=== PATIENT | female | born 1945 | race Caucasian/White ===

== ENCOUNTER 2017-06-29 12:58 | Inpatient (IN) | payer OTHER, MEDICARE ==
[~2017-06-29] VITALS: Ht 160 cm; Wt 57.6 kg
[~2017-06-29 12:58] MED LIST: ASPI81TA82 PO; EXCETAB2 PO; HYDR12.56 PO; POTA595T5 PO; PRAV40 PO
[2017-06-29 13:31] VITALS: BP 164/68; PULSE 85; RESP 16; TEMP 98.3; O2SAT 96
[2017-06-29] MEDS ORDERED: SODIUM CHLORIDE 0.9% FLUSH 10 ML FLUSH IV FLUSH PRN ×2 (13:45→19:30)
[2017-06-29] MEDS ORDERED: ONDANSETRON HCL 4 MG/2 ML VIAL IV PUSH ONE (13:45)
[2017-06-29] MEDS ORDERED: MORPHINE SULFATE 4 MG/ML INJ IV PUSH ONE (13:45)
[2017-06-29 13:49] VITALS: BP 163/66; PULSE 85; RESP 16; O2SAT 100
--- NOTE | 2017-06-29 13:51 | PD ---
HPI Chief Complaint: Pain: Acute or Chronic Time Seen by Provider: 13:45 Travel History International Travel<30 days: No Contact w/Intl Traveler<30days: No Traveled to known affect area: No History of Present Illness HPI Patient comes in complaining of right knee pain describes as throbbing burning sensation throughout her right knee. Patient states she awoke with this yesterday. Patient denies doing anything for it. Denies anything making it better. Pain is worse with movement. Patient states she is unable to ambulate secondary to the pain. Denies any radiation of pain, fevers, chest pain, shortness of breath, numbness or tingling anywhere, trauma, or IV drug use history. PFSH Past Medical History Arthritis: Yes Asthma: No Autoimmune Disease: No Blood Disorders: No Anxiety: No Depression: No Heart Rhythm Problems: No Cancer: Yes Cardiovascular Problems: No High Cholesterol: No Chemotherapy: No Chest Pain: No Congestive Heart Failure: No COPD: Yes Cerebrovascular Accident: Yes Diabetes: No Diminished Hearing: No Endocrine: No Gastrointestinal Disorders: Yes GERD: No Genitourinary: No Headaches: Yes Hiatal Hernia: No Hypertension: Yes Immune Disorder: No Implanted Vascular Access Dvce: Yes Kidney Stones: No Musculoskeletal: Yes ( OSTEOMYLITIS AGE 11, ARTHRITIS,NECK AND BACK) Neurologic: Yes (STROKE, NECK, BACK) Psychiatric: Yes (CLAUSTRAPHOBIA) Reproductive: Yes Respiratory: Yes (COPD) Migraines: No Radiation Therapy: No Renal Failure: No Seizures: No Sickle Cell Disease: No Sleep Apnea: No Thyroid Disease: No Ulcer: No ?: Not : 3 Para: 3 Past Surgical History Abdominal Surgery: Yes AICD: No Appendectomy: Yes Arteriovenous Shunt: No Body Medical Devices: STENTS LEGS, CERVICAL HARDWARE Cardiac Surgery: No Ear Surgery: No Endocrine Surgery: No Eye Surgery: No Genitourinary Surgery: No Gynecologic Surgery: Yes (HYSTERECTOMY) Hysterectomy: Yes Insulin Pump: No Joint Replacement: Yes (BILAT HIP) Neurologic Surgery: Yes (CERVICAL FUSION, LUMBAR DISCECTOMY) Oral Surgery: Yes (TEETH EXTRACTED) Pacemaker: No Thoracic Surgery: No Tonsillectomy: Yes Other Surgery: Yes (LT FEM BIPASS GRAFT-2009 RT ARTHRECTOMY) Social History Alcohol Use: No Tobacco Use: Yes Substance Use: No Allergies-Medications (Allergen,Severity, Reaction): Coded Allergies: Sulfa (Sulfonamide Antibiotics) (Unverified Allergy, Severe, Rash, 05/15/17 ) Reported Meds & Prescriptions Reported Meds & Active Scripts Active Keflex (Cephalexin) 500 Mg Cap 500 Mg PO Q12H 10 Days Mobic (Meloxicam) 7.5 Mg Tab 7.5 Mg PO DAILY 7 Days Review of Systems Except as stated in HPI: all other systems reviewed are Neg Physical Exam Narrative GENERAL: Well-developed, well nourished, in no acute distress, and non-ill appearing. SKIN: Focused skin assessment warm and dry. HEAD: Atraumatic. Normocephalic. EYES: Pupils equal and round. EOMI. No scleral icterus. No injection or drainage. ENT: No nasal bleeding or discharge. Mucous membranes pink and moist. NECK: Trachea midline. Supple. No nuclear rigidity. CARDIOVASCULAR: Dorsal pulses 2+ contact, equal bilaterally. Capillary refill less than 2 seconds. RESPIRATORY: No accessory muscle use. No respiratory distress. MUSCULOSKELETAL: No obvious deformities. No clubbing. No cyanosis. No edema. Decreased range of motion right knee secondary to pain. There is no crepitus, erythematous, or wound noted. Knee is afebrile. There is fluid collection noted. NEUROLOGICAL: Awake and alert. No obvious cranial nerve deficits. Motor grossly within normal limits. Normal speech. PSYCHIATRIC: Appropriate mood and affect; insight and judgment normal. Data Data Last Documented VS Vital Signs Date Time Temp Pulse Resp B/P (MAP) Pulse Ox O2 Delivery O2 Flow Rate FiO2 06/29/17 17:27 77 16 132/56 (81) 96 Room Air 06/29/17 13:31 98.3 Orders Orders Basic Metabolic Panel (Bmp) (06/29/17 13:45) Complete Blood Count With Diff (06/29/17 13:45) Prothrombin Time / Inr (Pt) (06/29/17 13:45) Act Partial Throm Time (Ptt) (06/29/17 13:45) Urinalysis - C+S If Indicated (06/29/17 13:45) Iv Access Insert/Monitor (06/29/17 13:45) Ecg Monitoring (06/29/17 13:45) Oximetry (06/29/17 13:45) Sodium Chloride 0.9% Flush (Ns Flush) (06/29/17 13:45) Knee, Complete (4vws) (06/29/17 ) Morphine Inj (Morphine Inj) (06/29/17 13:45) Ondansetron Inj (Zofran Inj) (06/29/17 13:45) Urine Culture (06/29/17 14:30) Ketorolac Inj (Toradol Inj) (06/29/17 16:00) Splint Or Brace Apply/Monitor (06/29/17 15:57) Ceftriaxone Inj (Rocephin Inj) (06/29/17 16:00) Admit Order (Ed Use Only) (06/29/17 19:04) Labs Laboratory Tests Test 06/29/17 14:00 06/29/17 14:30 White Blood Count 8.6 TH/MM3 Red Blood Count 4.28 MIL/MM3 Hemoglobin 12.6 GM/DL Hematocrit 37.5 % Mean Corpuscular Volume 87.7 FL Mean Corpuscular Hemoglobin 29.5 PG Mean Corpuscular Hemoglobin Concent 33.7 % Red Cell Distribution Width 15.0 % Platelet Count 167 TH/MM3 Mean Platelet Volume 10.3 FL Neutrophils (%) (Auto) 85.8 % Lymphocytes (%) (Auto) 6.9 % Monocytes (%) (Auto) 7.2 % Eosinophils (%) (Auto) 0.0 % Basophils (%) (Auto) 0.1 % Neutrophils # (Auto) 7.4 TH/MM3 Lymphocytes # (Auto) 0.6 TH/MM3 Monocytes # (Auto) 0.6 TH/MM3 Eosinophils # (Auto) 0.0 TH/MM3 Basophils # (Auto) 0.0 TH/MM3 CBC Comment DIFF FINAL Differential Comment Prothrombin Time 11.7 SEC Prothromb Time International Ratio 1.1 RATIO Activated Partial Thromboplast Time 33.7 SEC Blood Urea Nitrogen 12 MG/DL Creatinine 1.05 MG/DL Random Glucose 127 MG/DL Calcium Level 9.0 MG/DL Sodium Level 138 MEQ/L Potassium Level 3.6 MEQ/L Chloride Level 105 MEQ/L Carbon Dioxide Level 24.5 MEQ/L Anion Gap 9 MEQ/L Estimat Glomerular Filtration Rate 52 ML/MIN Urine Color YELLOW Urine Turbidity HAZY Urine pH 5.5 Urine Specific [place] 1.013 Urine Protein TRACE mg/dL Urine Glucose (UA) NEG mg/dL Urine Ketones NEG mg/dL Urine Occult Blood SMALL Urine Nitrite POS Urine Bilirubin NEG Urine Urobilinogen LESS THAN 2.0 MG/DL Urine Leukocyte Esterase MOD Urine RBC 1 /hpf Urine WBC 9 /hpf Urine Bacteria MANY /hpf Microscopic Urinalysis Comment CULTURE INDICATED MDM Medical Decision Making Medical Screen Exam Complete: Yes Emergency Medical Condition: Yes Differential Diagnosis Fracture, effusion, bursitis, septic arthritis, UTI, bedbugs, other Narrative Course Patient was seen and examined. IV was established patient was placed on continuous cardiac monitoring. Initial laboratory radiological studies were ordered. Patient was given IV morphine for pain. Patient was cleaned by nursing staff to help clean up the bedbugs. Discussed patient with Dr. Farrar, who saw and evaluated the patient is agreeable with plan of care and disposition. Case management was consulted this patient is assistance with possible placement secondary to her current living conditions. Case management has some placement for however patient was unable to ambulate which were not patient to go to the assisted living facility that they had set up for her. Case management then tried contacting several other facilities without any return calls. Patient will be placed on observation for possible placement tomorrow. Patient is agreeable to this. Patient was given a dose of Rocephin for her UTI. Physician Communication Physician Communication [address] Farr, who is agreeable to admit the patient. Diagnosis Primary Impression: Effusion of right knee joint Additional Impression: UTI (urinary tract infection) Qualified Codes: N39.0 - Urinary tract infection, site not specified Admitting Information Admitting Physician Requests: Observation Referrals: [facility] Patient Instructions: General Instructions, Swollen Knee Joint (ED), Urinary Tract Infection in Women (ED) Med/Other Pt SpecificInfo: Prescription(s) given Scripts Cephalexin (Keflex) 500 Mg Cap 500 MG PO Q12H for Infection for 10 Days, #20 CAP 0 Refills Prov: Pushpa Farrar MD 06/29/17 Meloxicam (Mobic) 7.5 Mg Tab 7.5 MG PO DAILY for Pain for 7 Days, #7 TAB 0 Refills Prov: Pushpa Farrar MD 06/29/17 Condition: Stable Jesus Garcia Jun 29, 2017 13:51
[2017-06-29 14:15] LABS: AUTOMATED NEUTROPHIL # 7.4 TH/MM3 (1.8-7.7); BASOPHIL % 0.1 % (0.0-2.0); HEMATOCRIT 37.5 % (35.0-46.0); HEMO FLAGS DIFF FINAL; LYMPH % 6.9 % (9.0-44.0); LYMPHOCYTE # 0.6 TH/MM3 (1.0-4.8); MEAN CELL VOLUME 87.7 FL (80.0-100.0); MEAN CORPUSCULAR HEMOGLOBIN 29.5 PG (27.0-34.0); MEAN CORPUSCULAR HGB CONC 33.7 % (32.0-36.0); MONO % 7.2 % (0.0-8.0); NEUT % 85.8 % (16.0-70.0); PLATELET COUNT 167 TH/MM3 (150-450); RED BLOOD COUNT 4.28 MIL/MM3 (4.00-5.30); WHITE BLOOD COUNT 8.6 TH/MM3 (4.0-11.0)
[2017-06-29 14:30] LABS: APTT (PATIENT) 33.7 SEC (24.3-30.1); INTERNATIONAL NORMALIZED RATIO 1.1 RATIO; PROTHROMBIN TIME - PATIENT 11.7 SEC (9.8-11.6)
[2017-06-29 14:35] LABS: BICARBONATE 24.5 MEQ/L (21.0-32.0); POTASSIUM 3.6 MEQ/L (3.5-5.1)
--- NOTE | 2017-06-29 15:25 | RADRPT ---
EXAM DATE/TIME: 06/29/2017 15:06 [facility] COMPARISON: CHEST SINGLE AP, February 06, 2015, 19:36. INDICATIONS : Pain in entire knee without fall or trauma. MEDICAL HISTORY : None. SURGICAL HISTORY : None. ENCOUNTER: Initial ACUITY: 2 days PAIN SCORE: 8/10 LOCATION: Right knee FINDINGS: The osseous structures are intact. There is a moderate-sized effusion in the suprapatella bursa. Ther e are atherosclerotic changes seen in the superficial femoral artery. CONCLUSION: 1. Moderate size joint effusion. 2. No acute bony abnormality. Ray Padron MD on June 29, 2017 at 15:23 Board Certified Radiologist. This report was verified electronically.
[2017-06-29 15:34] LABS: BACTERIA, URINE MANY /hpf; BLOOD, URINE SMALL (NEG); COMMENT (UR) CULTURE INDICATED; CULTURE IF INDICATED CULTURE INDICATED; GLUCOSE,URINE NEG (NEG); KETONE, URINE NEG (NEG); NITRITE,URINE POS (NEG); PH, URINE 5.5 (5.0-8.5); URINE COLOR YELLOW (YELLW/STRAW)
[2017-06-29] MEDS ORDERED: cefTRIAXone INJ 1,000 MG in SODIUM CHLORIDE 0.9% INJ 100 ML IV ONE (16:00)
[2017-06-29] MEDS ORDERED: KETOROLAC TROMETHAMINE 30 MG/ML (IVP) VIAL IV PUSH ONE (16:00)
[2017-06-29] MEDS ORDERED: CEPH-460 PO (16:10)
[2017-06-29] MEDS ORDERED: MOBI7.5T PO (16:10)
[2017-06-29 17:27] VITALS: BP 132/56; PULSE 77; RESP 16; O2SAT 96
--- NOTE | 2017-06-29 19:28 | HHI.HP ---
[facility] Cedric Bartlett MD Admission Diagnosis right knee joint effusion, UTI, unable to ambulate. Diagnoses: (1) Gait instability Diagnosis: Principal (2) Knee pain Diagnosis: Principal (3) Renal insufficiency Diagnosis: Principal (4) UTI (urinary tract infection) Diagnosis: Principal (5) HTN (hypertension) Diagnosis: Principal Travel History International Travel<30 Days: No Contact w/Intl Traveler <30 Da: No Traveled to Known Affected Are: No History of Present Illness This is a 71-year-old female with a PMH of HTN, COPD, h/o CVA and Tobacco Abuse who was brought to the ER by EMS secondary to complaints of severe right knee pain. Reports increasing difficulty w/ ambulation due to pain. Denies injury or trauma. Per EMS, pt living in very poor conditions, unkempt. On arrival, BP 164/68, HR 85, O2 sat 96% on RA, Afebrile. CBC unremarkable. Creatinine 1.05, previously 0.63 on 02/07/15. INR 1.1. UA positive for UTI. Knee X-ray with moderate size joint effusion. Patient was to be DC'd to [facility] from ER, however unable to make arrangements for placement at this time, therefore pt to be admitted for gait instability as unsafe discharge home. Review of Systems Except as stated in HPI: all other systems reviewed are Neg ROS: 14 point review of systems otherwise negative. Past Family Social History Past Medical History PMH: HTN, COPD, h/o CVA and Tobacco Abuse Past Surgical History PAST SURGICAL HISTORY: Cervical Hardware, Appendectomy, Hysterectomy, Bilateral Hip Replacement, Lumbar Discectomy, Dental Extraction, Left Femoral Bypass Allergies: Coded Allergies: Sulfa (Sulfonamide Antibiotics) (Unverified Allergy, Severe, Rash, 05/15/17 ) Family History PAST FAMILY HISTORY: Reviewed. No h/o DM or CAD Social History PAST SOCIAL HISTORY: Negative for alcohol or drugs. Positive for tobacco. Physical Exam Vital Signs Vital Signs Date Time Temp Pulse Resp B/P (MAP) Pulse Ox O2 Delivery O2 Flow Rate FiO2 06/29/17 17:27 77 16 132/56 (81) 96 Room Air 06/29/17 13:49 85 16 163/66 (98) 100 Room Air 06/29/17 13:31 98.3 85 16 164/68 (100) 96 Physical Exam PE: GENERAL: Elderly female in no acute distress. HEENT: PERRLA, EOMI. No scleral icterus or conjunctival pallor. No lid lag or facial droop. CARDIOVASCULAR: Regular rate and rhythm. No obvious murmurs to auscultation. No chest tenderness to palpation. RESPIRATORY: No obvious rhonchi or wheezing. Clear to auscultation. Breath sounds equal bilaterally. GASTROINTESTINAL: Abdomen soft, non-tender, nondistended. BS normal. MUSCULOSKELETAL: Extremities without clubbing, cyanosis, or edema. No obvious deformities. Decreased ROM of right knee due to pain, +effusion. Pulses intact. NEUROLOGICAL: Awake, alert and oriented x4. No focal neurologic deficits. Moving both upper and lower extremities spontaneously. Laboratory Laboratory Tests Test 06/29/17 14:00 06/29/17 14:30 White Blood Count 8.6 Red Blood Count 4.28 Hemoglobin 12.6 Hematocrit 37.5 Mean Corpuscular Volume 87.7 Mean Corpuscular Hemoglobin 29.5 Mean Corpuscular Hemoglobin Concent 33.7 Red Cell Distribution Width 15.0 Platelet Count 167 Mean Platelet Volume 10.3 Neutrophils (%) (Auto) 85.8 Lymphocytes (%) (Auto) 6.9 Monocytes (%) (Auto) 7.2 Eosinophils (%) (Auto) 0.0 Basophils (%) (Auto) 0.1 Neutrophils # (Auto) 7.4 Lymphocytes # (Auto) 0.6 Monocytes # (Auto) 0.6 Eosinophils # (Auto) 0.0 Basophils # (Auto) 0.0 CBC Comment DIFF FINAL Differential Comment Prothrombin Time 11.7 Prothromb Time International Ratio 1.1 Activated Partial Thromboplast Time 33.7 Blood Urea Nitrogen 12 Creatinine 1.05 Random Glucose 127 Calcium Level 9.0 Sodium Level 138 Potassium Level 3.6 Chloride Level 105 Carbon Dioxide Level 24.5 Anion Gap 9 Estimat Glomerular Filtration Rate 52 Urine Color YELLOW Urine Turbidity HAZY Urine pH 5.5 Urine Specific [place] 1.013 Urine Protein TRACE Urine Glucose (UA) NEG Urine Ketones NEG Urine Occult Blood SMALL Urine Nitrite POS Urine Bilirubin NEG Urine Urobilinogen LESS THAN 2.0 Urine Leukocyte Esterase MOD Urine RBC 1 Urine WBC 9 Urine Bacteria MANY Microscopic Urinalysis Comment CULTURE INDICATED Date/Time Source Procedure Growth Status 06/29/17 14:30 Urine Clean Catch Urine Culture Pending Received Result Diagram: 06/29/17 1400 06/29/17 1400 Pedro VTE Risk Assessment Caprini VTE Risk Assessment: Mod/High Risk (score >= 2) Caprini Risk Assessment Model Point Value = 1 Point Value = 2 Point Value = 3 Point Value = 5 Age 41-60 Minor surgery BMI > 25 kg/m2 Swollen legs Varicose veins or History of unexplained or recurrent spontaneous Oral contraceptives or hormone replacement Sepsis (< 1 month) Serious lung disease, including pneumonia (< 1 month) Abnormal pulmonary function Acute myocardial infarction Congestive heart failure (< 1 month) History of inflammatory bowel disease Medical patient at bed rest Age 61-74 Arthroscopic surgery Major open surgery (> 45 min) Laparoscopic surgery (> 45 min) Malignancy Confined to bed (> 72 hours) Immobilizing plaster cast Central venous access Age >= 75 History of VTE Family history of VTE Factor V Leiden Prothrombin [id number] Lupus anticoagulant Anticardiolipin antibodies Elevated serum homocysteine Heparin-induced thrombocytopenia Other congenital or acquired thrombophilia Stroke (< 1 month) Elective arthroplasty Hip, pelvis, or leg fracture Acute spinal cord injury (< 1 month) Prophylaxis Regimen Total Risk Factor Score Risk Level Prophylaxis Regimen 0-1 Low Early ambulation 2 Moderate Order ONE of the following: *Sequential Compression Device (SCD) *Heparin 5000 units SQ BID 3-4 Higher Order ONE of the following medications: *Heparin 5000 units SQ TID *Enoxaparin/Lovenox 40 mg SQ daily (WT < 150 kg, CrCl > 30 mL/min) *Enoxaparin/Lovenox 30 mg SQ daily (WT < 150 kg, CrCl > 10-29 mL/min) *Enoxaparin/Lovenox 30 mg SQ BID (WT < 150 kg, CrCl > 30 mL/min) AND/OR *Sequential Compression Device (SCD) 5 or more Highest Order ONE of the following medications: *Heparin 5000 units SQ TID (Preferred with Epidurals) *Enoxaparin/Lovenox 40 mg SQ daily (WT < 150 kg, CrCl > 30 mL/min) *Enoxaparin/Lovenox 30 mg SQ daily (WT < 150 kg, CrCl > 10-29 mL/min) *Enoxaparin/Lovenox 30 mg SQ BID (WT < 150 kg, CrCl > 30 mL/min) AND *Sequential Compression Device (SCD) Assessment and Plan Problem List: (1) Gait instability ICD Code: R26.81 - Unsteadiness on feet (2) Knee pain ICD Code: M25.569 - Pain in unspecified knee (3) Renal insufficiency ICD Code: N28.9 - Disorder of kidney and ureter, unspecified (4) UTI (urinary tract infection) ICD Code: N39.0 - Urinary tract infection, site not specified Status: Acute (5) HTN (hypertension) ICD Code: I10 - Essential (primary) hypertension Assessment and Plan A/P: 1. Gait Instability: c/o progressive gait instability secondary to knee pain, unable to ambulate without assistance. Lives alone. Case Management evaluated pt in ER, plan is for transfer to [facility] however unable to make arrangements at this time. Pt will be admitted for Observation as unsafe discharge home. Case Management consult in place. PT for eval/tx. 2. Knee Pain: Right. Severe. No injury/trauma. Knee X-ray w/ moderate size effusion, images reviewed by me. PT for eval/tx. Analgesics as needed. 3. MIREYA: Acute Renal Insufficiency. Creatinine 1.05, previously 0.63 on . U/a positive for UTI, IVF for hydration, repeat labs in am. 4. UTI: U/a w/ UTI, s/p Rocephin in ER. Continue IV Abx, IVF for hydration as above. 5. HTN: BP 150-160's, likely compounded by pain complaints, optimize pain control. Monitor BP. 6. DVT Prophylaxis: Heparin sq 7. Social work for d/c planning as needed. 8. Case discussed w/ ER physician at length. Problem Qualifiers (1) UTI (urinary tract infection): Qualified Codes: N39.0 - Urinary tract infection, site not specified Alma Farr MD Jun 29, 2017 19:28
[2017-06-29] MEDS ORDERED: SENNOSIDES 8.6 MG TAB PO PRN (19:30)
[2017-06-29] MEDS ORDERED: MAGNESIUM HYDROXIDE SUSP 30 ML CUP PO PRN (19:30)
[2017-06-29] MEDS ORDERED: LACTULOSE SYRUP 20 GM/30 ML CUP PO PRN (19:30)
[2017-06-29] MEDS ORDERED: BISACODYL 10 MG SUPP RECTAL PRN (19:30)
[2017-06-29] MEDS ORDERED: ACETAMINOPHEN/HYDROcodone 325 MG/5 MG TAB PO PRN (19:30)
[2017-06-29] MEDS ORDERED: ACETAMINOPHEN 325 MG TAB PO PRN (19:30)
[2017-06-29] MEDS ORDERED: ONDANSETRON HCL 4 MG/2 ML VIAL IVP PRN (19:30)
[2017-06-29] MEDS: SODIUM CHLORIDE 0.9% FLUSH 10 ML FLUSH IV FLUSH SCH (21:00)
[2017-06-29] MEDS: DOCUSATE SODIUM 50 MG/SENNA 8.6 MG TAB PO SCH (21:00)
[2017-06-29 21:06] VITALS: BP 127/78; PULSE 75; RESP 18; O2SAT 98
[2017-06-29] MEDS: SODIUM CHLOR 0.9% 1000 ML INJ 1,000 ML IV SCH (21:09)
[2017-06-29 22:24] VITALS: BP 160/69; PULSE 69; RESP 17; TEMP 97.9; O2SAT 95
[2017-06-29] MEDS: ACETAMINOPHEN/HYDROcodone 325 MG/10 MG TAB PO PRN (23:53)
[2017-06-30] VITALS (11 sets, daily range): BP systolic 113–150; BP diastolic 51–72; PULSE 54–75; RESP 16–18; TEMP 97.6–98.4; O2SAT 90–96
[2017-06-30] MEDS ORDERED: MORPHINE SULFATE 4 MG/ML INJ IV PUSH ONE (02:15)
--- NOTE | 2017-06-30 04:30 | RADRPT ---
EXAM DATE/TIME: 06/30/2017 04:10 [facility] COMPARISON: CHEST SINGLE AP, February 06, 2015, 19:36. INDICATIONS : Chest pain and difficulty breathing MEDICAL HISTORY : None. SURGICAL HISTORY : None. ENCOUNTER: Initial ACUITY: 1 day PAIN SCORE: 6/10 LOCATION: Bilateral chest FINDINGS: A single view of the chest demonstrates subsegmental atelectasis at the lung bases. No significant ef fusion. No pneumothorax. Heart size upper limits normal. Tortuous aorta. CONCLUSION: 1. Subsegmental atelectasis at the lung bases. Franklin Herrera MD on June 30, 2017 at 4:28 Board Certified Radiologist. This report was verified electronically.
[2017-06-30] MEDS: SODIUM CHLOR 0.9% 1000 ML INJ 1,000 ML IV SCH ×2 (06:33→18:29)
--- NOTE | 2017-06-30 08:24 | EKG ---
Date Performed: 06/30/2017 Time Performed: 02:11:16 PTAGE: 71 years EKG: Sinus rhythm LEFT AXIS DEVIATION MINIMAL VOLTAGE CRITERIA FOR LVH, CONSIDER NORMAL VARIANT NONSPECIFIC ST/T-WAVE ABNORMALITY ABNORMAL ECG PREVIOUS TRACING : 02/06/2015 20.37 No significant change from previous tracing noted. DOCTOR: Rafael Muro Interpretating Date/Time 06/30/2017 08:23:36
[2017-06-30 08:27] LABS: HEMATOCRIT 32.4 % (35.0-46.0); MEAN CELL VOLUME 88.2 FL (80.0-100.0); MEAN CORPUSCULAR HGB CONC 34.1 % (32.0-36.0); PLATELET COUNT 139 TH/MM3 (150-450); RED BLOOD COUNT 3.67 MIL/MM3 (4.00-5.30); RED CELL DISTRIBUTION WIDTH 14.7 % (11.6-17.2); WHITE BLOOD COUNT 5.6 TH/MM3 (4.0-11.0)
[2017-06-30 08:28] LABS: HEMO FLAGS AUTO DIFF
[2017-06-30 08:49] LABS: ALKALINE PHOSPHATASE 72 U/L (45-117); ALT (GPT) 8 U/L (10-53); ANION GAP 8 MEQ/L (5-15); AST (GOT) 11 U/L (15-37); BLOOD UREA NITROGEN 14 MG/DL (7-18); CHLORIDE 109 MEQ/L (98-107); GLOMERULAR FILTRATION RATE 64 ML/MIN (>89); POTASSIUM 3.5 MEQ/L (3.5-5.1); SODIUM (NA) 140 MEQ/L (136-145); TOTAL BILIRUBIN ADULT 0.3 MG/DL (0.2-1.0)
[2017-06-30 09:32] LABS: BANDS 3 % (0-6); NEUTROPHIL # MANUAL DIFF 4.4 TH/MM3 (1.8-7.7); POLYS (SEG NEUTROPHILS) 75 % (16-70); WBC DIFF SAMPLE 100
[2017-06-30 09:33] LABS: OVALOCYTES 1+ (NORMAL); PLATELET ESTIMATE SMEAR LOW (NORMAL); PLATELET MORPHOLOGY NORMAL (NORMAL); SCAN/DIFF FINAL DIFF MANUAL
[2017-06-30] MEDS: DOCUSATE SODIUM 50 MG/SENNA 8.6 MG TAB PO SCH ×2 (10:13→21:22)
[2017-06-30] MEDS: HEPARIN SODIUM - SQ 10,000 UNITS/ML VIAL SQ SCH ×2 (10:14→21:23)
[2017-06-30] MEDS: SODIUM CHLORIDE 0.9% FLUSH 10 ML FLUSH IV FLUSH SCH ×2 (10:14→21:22)
[2017-06-30] MEDS: REMOVE OLD PATCH T-DERMAL SCH (12:45)
--- NOTE | 2017-06-30 12:55 | HHI.PR ---
Subjective Remarks Follow up for right knee pain, inability to ambulate. The patient reports continued right knee pain, minimally improved compared to yesterday. She has limited ROM secondary to the pain. She denies noticing any open wound, drainage , or erythema. Denies any recent fevers/chills. Continues to deny any injury to the knee. She states she lives in an efficiency apartment by herself however because of her knee, she is not able to ambulate to take care of herself. She reports generalized weakness. RN reports the patient's O2 sat dropped to 80s today. The patient has COPD, but does not wear oxygen at home. She does not have any inhalers or duonebs at home either. She continues to smoke 1 to 1.5 PPD tobacco. She reports a cough, occasionally productive of white to yellow sputum. Denies any shortness of breath. Does have occasional wheezing but denies any currently. Denies any chest pain. She has no other medical complaints. Objective Vitals Vital Signs Date Time Temp Pulse Resp B/P (MAP) Pulse Ox O2 Delivery O2 Flow Rate FiO2 06/30/17 12:16 98.0 56 18 113/51 (71) 95 06/30/17 09:44 98.0 68 16 141/62 (88) 94 06/30/17 09:05 92 Nasal Cannula 5.00 06/30/17 06:33 97.6 75 16 146/72 (96) 90 06/30/17 04:01 68 06/30/17 02:06 75 18 141/69 (93) 91 06/29/17 22:24 97.9 69 17 160/69 (99) 95 06/29/17 21:06 75 18 127/78 (94) 98 Room Air 06/29/17 17:27 77 16 132/56 (81) 96 Room Air 06/29/17 13:49 85 16 163/66 (98) 100 Room Air 06/29/17 13:31 98.3 85 16 164/68 (100) 96 I/O 06/29/17 06/29/17 06/29/17 06/30/17 06/30/17 06/30/17 07:00 15:00 23:00 07:00 15:00 23:00 Intake Total 100 ml 100 ml Balance 100 ml 100 ml Intake Oral 100 ml IV Total 100 ml # Voids 1 Result Diagram: 06/30/17 0739 06/30/17 0739 Imaging Last Impressions Chest X-Ray 06/30/17 0000 Signed Impressions: Service Date/Time: Friday, June 30, 2017 04:10 - CONCLUSION: 1. Subsegmental atelectasis at the lung bases. Franklin Herrera MD Knee X-Ray 06/29/17 0000 Signed Impressions: Service Date/Time: Thursday, June 29, 2017 15:06 - CONCLUSION: 1. Moderate size joint effusion. 2. No acute bony abnormality. Ray Padron MD Objective Remarks GENERAL: Well-nourished, well-developed elderly unkempt appearing female patient in NAD. SKIN: Warm and dry. No rash. HEENT: Normocephalic. Atraumatic.Pupils equal and round. Mucous membranes pink and moist. NECK: Supple. Trachea midline. CARDIOVASCULAR: Regular rate and rhythm. S1, S2 noted. No murmur appreciated. RESPIRATORY: No accessory muscle use. Diffuse chest congestion with mild end expiratory wheezing throughout. Breath sounds equal bilaterally. GASTROINTESTINAL: Abdomen soft, non-tender, nondistended. Normoactive bowel sounds x4. MUSCULOSKELETAL: No obvious deformities. Right knee with mild effusion, limited ROM secondary to pain, no erythema/warmth, no open wound/drainage. Bilateral calves nontender. NEUROLOGICAL: Awake and alert. No obvious cranial nerve deficits. Motor grossly within normal limits. Normal speech. PSYCHIATRIC: Appropriate mood and affect; insight and judgment normal. Medications and IVs Current Medications Medications (Trade) Dose Ordered Sig/Vernon Route Start Time Stop Time Status Last Admin Ceftriaxone Sodium 1000 mg/ Sodium Chloride 100 ml @ 200 mls/hr Q24H IV 06/30/17 18:00 Sodium Chloride 1,000 ml @ 100 mls/hr Q10H IV 06/29/17 19:23 06/30/17 06:33 (NS Flush) 2 ml UNSCH PRN IV FLUSH 06/29/17 19:30 (NS Flush) 2 ml BID IV FLUSH 06/29/17 21:00 06/30/17 10:14 (Zofran Inj) 4 mg Q6H PRN IVP 06/29/17 19:30 (Heparin Inj) 5,000 units Q12H SQ 06/30/17 09:00 06/30/17 10:14 (Tylenol) 650 mg Q6H PRN PO 06/29/17 19:30 ([place] 5-325 Mg) 1 tab Q4H PRN PO 06/29/17 19:30 ([place] 10-325 Mg) 1 tab Q4H PRN PO 06/29/17 19:30 06/29/17 23:53 (Grecia-Colace) 1 tab BID PO 06/29/17 21:00 06/30/17 10:13 (Milk Of Magnesia Liq) 30 ml Q12H PRN PO 06/29/17 19:30 (Senokot) 17.2 mg Q12H PRN PO 06/29/17 19:30 (Dulcolax Supp) 10 mg DAILY PRN RECTAL 06/29/17 19:30 (Lactulose Liq) 30 ml DAILY PRN PO 06/29/17 19:30 A/P Problem List: (1) Gait instability ICD Code: R26.81 - Unsteadiness on feet (2) Knee pain ICD Code: M25.569 - Pain in unspecified knee (3) Renal insufficiency ICD Code: N28.9 - Disorder of kidney and ureter, unspecified (4) UTI (urinary tract infection) ICD Code: N39.0 - Urinary tract infection, site not specified Status: Acute (5) HTN (hypertension) ICD Code: I10 - Essential (primary) hypertension Assessment and Plan 71-year-old female with a PMH of HTN, COPD, h/o CVA and Tobacco Abuse who was brought to the ER by EMS secondary to complaints of severe right knee pain. Reports increasing difficulty w/ ambulation due to pain. Per EMS, pt living in very poor conditions, unkempt. Patient was to be DC'd to [facility] from ER, however unable to make arrangements for placement at this time, therefore pt to be admitted for gait instability as unsafe discharge home. Gait Instability: c/o progressive gait instability secondary to knee pain, unable to ambulate without assistance. Lives alone. Case Management assisting with placement. PT for eval/tx, recommends rehab or [facility]. Right Knee Pain: Right. Severe. No injury/trauma. Knee X-ray w/ moderate size effusion, images reviewed by me. PT for eval/tx. Analgesics as needed. Ice pack. MIREYA: Acute Renal Insufficiency. Creatinine 1.05, previously 0.63 on 02/07/15. U/a positive for UTI, IVF for hydration, repeat labs show improvement, Cr 0.87. UTI: U/a with +nitrites, leuks, WBCs, bacteria. Continue antibiotics IV Rocephin. Give IVF for hydration as above. Monitor urine culture. HTN: BP 150-160's, likely compounded by pain complaints, optimize pain control. Monitor BP, improved. Acute COPD Exacerbation with Hypoxia: O2 sat dropped to the 80s this morning, currently requiring 5L NC with O2 sat 95%. Need to rule out PE, checking CT-PA. Start on scheduled duonebs q8h and steroids with prednisone 20mg bid x3days. Consider home O2 walk test tomorrow. Tobacco Abuse: patient continues to smoke 1 to 1.5 PPD. Counseled to quit but patient has no desire at this time. Provided nicotine patch. DVT Prophylaxis: Heparin sq Discharge Planning Patient will need placement either at rehab or [facility]. Case management to assist with discharge planning. Patient not yet ready for discharge, pending further clinical improvement. Problem Qualifiers (1) UTI (urinary tract infection): Qualified Codes: N39.0 - Urinary tract infection, site not specified Jackie Wilson PA-C Jun 30, 2017 12:55 pm
[2017-06-30] MEDS ORDERED: IOHEXOL 350 MG/ML 10 ML VIAL (for RAD DIAG) IV PUSH ONE (13:05)
--- NOTE | 2017-06-30 13:11 | RADRPT ---
EXAM DATE/TIME: 06/30/2017 12:39 [place] COMPARISON: CHEST SINGLE AP, June 30, 2017, 4:10. INDICATIONS : Shortness of breath. IV CONTRAST: 75 cc Omnipaque 350 (iohexol) IV RADIATION DOSE: 5.14 CTDIvol (mGy) MEDICAL HISTORY : Stroke. Hypertension. SURGICAL HISTORY : Cervical fusion. ENCOUNTER: Initial ACUITY: 1 day PAIN SCALE: 0/10 LOCATION: Bilateral chest TECHNIQUE: Volumetric scanning of the chest was performed using a pulmonary embolism protocol MIP images were re constructed. Using automated exposure control and adjustment of the mA and/or kV according to patien t size, radiation dose was kept as low as reasonably achievable to obtain optimal diagnostic quality images. DICOM format image data is available electronically for review and comparison. Follow-up recommendations for detected pulmonary nodules are based at a minimum on nodule size and pa tient risk factors according to Fleischner Society Guidelines. FINDINGS: PULMONARY ARTERIES: No filling defects are seen in the pulmonary arteries through the segmental level. LUNGS: There is volume loss and airspace consolidation involving the left lower lobe, right lower lobe and b asilar aspect of the lingula and right middle lobe. PLEURAE: There is no pleural thickening or pleural effusion. MEDIASTINUM: There is good visualization of the great vessels of the middle mediastinum. There is extensive athero sclerosis noted throughout the thoracic and abdominal aorta. No evidence of mediastinal or hilar carola opathy/mass. MUSCULOSKELETAL: Within normal limits for patient age. MISCELLANEOUS: The visualized upper abdominal organs demonstrate no acute abnormality. Extensive atherosclerosis is identified in the mesenteric vessels. The right kidney appears decreased in size with multiple areas of cortical thinning consistent with prior infection and scar. CONCLUSION: No evidence of PE. Bilateral basilar airspace consolidation within the right and left lower lobe as well as the deep in the portions of the lingula and right middle lobe. Amparo Ramos MD on June 30, 2017 at 13:05 Board Certified Radiologist. This report was verified electronically.
[2017-06-30] MEDS: predniSONE 20 MG TAB PO SCH ×2 (13:57→21:22)
[2017-06-30] MEDS: NICOTINE 21 MG/24 HR PATCH T-DERMAL SCH (13:57)
[2017-06-30] MEDS: RESP: ALBUTEROL 2.5 MG/IPRATROPIUM 0.5 MG NEB (SCH) NEB (16:45)
[2017-06-30] MEDS: cefTRIAXone INJ 1,000 MG in SODIUM CHLORIDE 0.9% INJ 100 ML IV SCH (18:30)
[2017-06-30] MEDS: ACETAMINOPHEN/HYDROcodone 325 MG/10 MG TAB PO PRN (18:30)
[2017-06-30] MEDS: AZITHROMYCIN INJ 500 MG in SODIUM CHLOR 0.9% 250 ML INJ 250 ML IV SCH (18:30)
[2017-07-01] VITALS (12 sets, daily range): BP systolic 116–152; BP diastolic 56–86; PULSE 41–84; RESP 16–19; TEMP 96.1–98.3; O2SAT 89–97
[2017-07-01] MEDS: SODIUM CHLOR 0.9% 1000 ML INJ 1,000 ML IV SCH ×2 (05:11→13:47)
[2017-07-01] MEDS: ACETAMINOPHEN/HYDROcodone 325 MG/10 MG TAB PO PRN ×4 (05:12→18:15)
[2017-07-01] MEDS: RESP: ALBUTEROL 2.5 MG/IPRATROPIUM 0.5 MG NEB (SCH) NEB ×2 (08:17→16:42)
[2017-07-01] MEDS: REMOVE OLD PATCH T-DERMAL SCH (09:00)
[2017-07-01] MEDS: DOCUSATE SODIUM 50 MG/SENNA 8.6 MG TAB PO SCH ×2 (09:34→22:39)
[2017-07-01] MEDS: HEPARIN SODIUM - SQ 10,000 UNITS/ML VIAL SQ SCH ×2 (09:35→22:38)
[2017-07-01] MEDS: predniSONE 20 MG TAB PO SCH ×2 (09:36→22:40)
[2017-07-01] MEDS: NICOTINE 21 MG/24 HR PATCH T-DERMAL SCH (09:36)
[2017-07-01] MEDS: SODIUM CHLORIDE 0.9% FLUSH 10 ML FLUSH IV FLUSH SCH ×2 (09:37→22:40)
--- NOTE | 2017-07-01 12:41 | HHI.PR ---
Subjective Remarks Follow up for right knee pain, inability to ambulate, UTI, pneumonia, COPD exacerbation. The patient reports feelings very weak again today. She reports a cough, occasionally productive of yellow sputum. Denies fevers/chills overnight. Denies any shortness of breath. Still requiring oxygen, O2 sat 90% on 5L NC. Denies abdominal pain/nausea/vomiting. She has not been able to ambulate because of her right knee pain. She does not think she will be able to take care of herself at home. Objective Vitals Vital Signs Date Time Temp Pulse Resp B/P (MAP) Pulse Ox O2 Delivery O2 Flow Rate FiO2 07/01/17 12:22 98.0 54 18 121/57 (78) 90 07/01/17 11:00 18 07/01/17 09:52 Nasal Cannula 5.00 07/01/17 08:39 98.0 53 19 152/70 (97) 90 07/01/17 08:25 89 Nasal Cannula 5.00 07/01/17 04:55 98.3 60 17 145/86 (105) 90 07/01/17 04:00 50 07/01/17 00:38 97.9 65 18 140/68 (92) 92 07/01/17 00:00 66 06/30/17 20:56 98.4 73 17 150/69 (96) 91 06/30/17 20:46 Nasal Cannula 5.00 06/30/17 20:00 72 06/30/17 19:08 Nasal Cannula 5.00 Humidified 06/30/17 18:57 75 06/30/17 15:23 97.8 60 16 116/59 (78) 96 I/O 06/30/17 06/30/17 06/30/17 07/01/17 07/01/17 07/01/17 07:00 15:00 23:00 07:00 15:00 23:00 Intake Total 100 ml Balance 100 ml Intake Oral 100 ml # Voids 1 Result Diagram: 06/30/17 0739 06/30/17 0739 Imaging Last Impressions Chest X-Ray 06/30/17 0000 Signed Impressions: Service Date/Time: Friday, June 30, 2017 04:10 - CONCLUSION: 1. Subsegmental atelectasis at the lung bases. Franklin Herrera MD CT Angiography 06/30/17 0000 Signed Impressions: Service Date/Time: Friday, June 30, 2017 12:39 - CONCLUSION: No evidence of PE. Bilateral basilar airspace consolidation within the right and left lower lobe as well as the deep in the portions of the lingula and right middle lobe. Amparo Ramos MD Knee X-Ray 06/29/17 0000 Signed Impressions: Service Date/Time: Thursday, June 29, 2017 15:06 - CONCLUSION: 1. Moderate size joint effusion. 2. No acute bony abnormality. Ray Padron MD Objective Remarks GENERAL: Well-nourished, well-developed elderly unkempt appearing female patient in NAD. SKIN: Warm and dry. No rash. Erythematous rash under breasts. HEENT: Normocephalic. Atraumatic.Pupils equal and round. Mucous membranes pink and moist. NECK: Supple. Trachea midline. CARDIOVASCULAR: Regular rate and rhythm. S1, S2 noted. No murmur appreciated. RESPIRATORY: No accessory muscle use. Diffuse chest congestion, otherwise no wheezing today. Breath sounds equal bilaterally. GASTROINTESTINAL: Abdomen soft, non-tender, nondistended. Normoactive bowel sounds x4. MUSCULOSKELETAL: No obvious deformities. Right knee with mild effusion, limited ROM secondary to pain, no erythema/warmth, no open wound/drainage. Bilateral calves nontender. NEUROLOGICAL: Awake and alert. No obvious cranial nerve deficits. Motor grossly within normal limits. Normal speech. PSYCHIATRIC: Appropriate mood and affect; insight and judgment normal. Medications and IVs Current Medications Medications (Trade) Dose Ordered Sig/Vernon Route Start Time Stop Time Status Last Admin Ceftriaxone Sodium 1000 mg/ Sodium Chloride 100 ml @ 200 mls/hr Q24H IV 06/30/17 18:00 06/30/17 18:30 Sodium Chloride 1,000 ml @ 100 mls/hr Q10H IV 06/29/17 19:23 07/01/17 13:47 (NS Flush) 2 ml UNSCH PRN IV FLUSH 06/29/17 19:30 (NS Flush) 2 ml BID IV FLUSH 06/29/17 21:00 07/01/17 09:37 (Zofran Inj) 4 mg Q6H PRN IVP 06/29/17 19:30 (Heparin Inj) 5,000 units Q12H SQ 06/30/17 09:00 07/01/17 09:35 (Tylenol) 650 mg Q6H PRN PO 06/29/17 19:30 ([place] 5-325 Mg) 1 tab Q4H PRN PO 06/29/17 19:30 ([place] 10-325 Mg) 1 tab Q4H PRN PO 06/29/17 19:30 07/01/17 13:46 (Grecia-Colace) 1 tab BID PO 06/29/17 21:00 07/01/17 09:34 (Milk Of Magnesia Liq) 30 ml Q12H PRN PO 06/29/17 19:30 (Senokot) 17.2 mg Q12H PRN PO 06/29/17 19:30 (Dulcolax Supp) 10 mg DAILY PRN RECTAL 06/29/17 19:30 (Lactulose Liq) 30 ml DAILY PRN PO 06/29/17 19:30 (Habitrol 21 Mg Patch.24 Hr) 1 patch DAILY T-DERMAL 06/30/17 12:45 07/01/17 09:36 Miscellaneous Information 1 DAILY T-DERMAL 06/30/17 12:45 07/01/17 09:00 (Duoneb Neb) 1 ampule Q8HR WHILE AWAKE NEB NEB 06/30/17 16:00 07/01/17 08:17 (Deltasone) 20 mg BID PO 06/30/17 13:00 07/03/17 12:59 07/01/17 09:36 Azithromycin 500 mg/Sodium Chloride 250 ml @ 250 mls/hr Q24H IV 06/30/17 18:00 06/30/17 18:30 (Mycostatin Powder) 1 applic Q12HR TOPICAL 07/01/17 14:00 A/P Problem List: (1) Gait instability ICD Code: R26.81 - Unsteadiness on feet (2) Knee pain ICD Code: M25.569 - Pain in unspecified knee (3) Renal insufficiency ICD Code: N28.9 - Disorder of kidney and ureter, unspecified (4) UTI (urinary tract infection) ICD Code: N39.0 - Urinary tract infection, site not specified Status: Acute (5) HTN (hypertension) ICD Code: I10 - Essential (primary) hypertension Assessment and Plan 71-year-old female with a PMH of HTN, COPD, h/o CVA and Tobacco Abuse who was brought to the ER by EMS secondary to complaints of severe right knee pain. Reports increasing difficulty w/ ambulation due to pain. Per EMS, pt living in very poor conditions, unkempt. Patient was to be DC'd to [facility] from ER, however unable to make arrangements for placement at this time, therefore pt to be admitted for gait instability as unsafe discharge home. Gait Instability: c/o progressive gait instability secondary to knee pain, unable to ambulate without assistance. Lives alone. Case Management assisting with placement. PT for eval/tx, recommends rehab or [facility] w/[facility]. Right Knee Pain: Right. Severe. No injury/trauma. Knee X-ray w/ moderate size effusion, images reviewed by me. PT for eval/tx. Analgesics as needed. Ice pack. Acute Respiratory Failure with Hypoxia: O2 sat dropped into low 80s on 06/30. CT- PA images reviewed, negative for PE, however showed bilateral basilar airspace consolidation with the right and left lower lobes, and lingula and RML. See treatment below. Consult pulmonology. Community Acquired Pneumonia: Seen on Chest CT as above. Started on IV Rocephin and IV Azithro. Check sputum culture. Urinary legionella/pneumococcal antigens. Acapella and incentive spirometry. Mucinex bid. Acute COPD Exacerbation: O2 sat dropped to the 80s as above, currently requiring 5L NC with O2 sat 90%. Continue on scheduled duonebs q8h and steroids with prednisone 20mg bid x3days. Will likely need home O2 walk test prior to discharge. MIREYA: Acute Renal Insufficiency. Creatinine 1.05, previously 0.63 on 02/07/15. U/a positive for UTI, Given IVF for hydration, s/p 5L, will d/c fluids. Repeat labs show improvement, Cr 0.79. Resolved. UTI: U/a with +nitrites, leuks, WBCs, bacteria. Continue antibiotics IV Rocephin. S/p IVF for hydration as above. Monitor urine culture. HTN: BP 150-160's, likely compounded by pain complaints, optimize pain control. Monitor BP, improved. Tobacco Abuse: patient continues to smoke 1 to 1.5 PPD. Counseled to quit but patient has no desire at this time. Provided nicotine patch. Candidal Intertrigo: under bilateral breasts, worse on the left. Start on nystatin powder bid q8yefgf. DVT Prophylaxis: Heparin sq Discharge Planning Discharge pending further clinical improvement, likely requires additional 2- 3days of hospitalization. Problem Qualifiers (1) UTI (urinary tract infection): Qualified Codes: N39.0 - Urinary tract infection, site not specified Jackie Wilson PA-C Jul 01, 2017 12:41 pm
[2017-07-01 15:27] LABS: AUTOMATED NEUTROPHIL # 5.3 TH/MM3 (1.8-7.7); BASOPHIL % 0.1 % (0.0-2.0); HEMATOCRIT 30.5 % (35.0-46.0); HEMO FLAGS DIFF FINAL; LYMPH % 7.7 % (9.0-44.0); LYMPHOCYTE # 0.5 TH/MM3 (1.0-4.8); MEAN CORPUSCULAR HEMOGLOBIN 30.3 PG (27.0-34.0); MEAN CORPUSCULAR HGB CONC 34.4 % (32.0-36.0); MONO % 4.5 % (0.0-8.0); NEUT % 87.7 % (16.0-70.0); PLATELET COUNT 152 TH/MM3 (150-450); RED BLOOD COUNT 3.46 MIL/MM3 (4.00-5.30); RED CELL DISTRIBUTION WIDTH 14.5 % (11.6-17.2)
[2017-07-01 15:54] LABS: BICARBONATE 25.1 MEQ/L (21.0-32.0); POTASSIUM 4.2 MEQ/L (3.5-5.1)
[2017-07-01] MEDS: NYSTATIN 100,000 U/GM PWD 15 GM BTL TOPICAL SCH ×2 (16:45→22:40)
[2017-07-01] MEDS: cefTRIAXone INJ 1,000 MG in SODIUM CHLORIDE 0.9% INJ 100 ML IV SCH (17:02)
[2017-07-01] MEDS: AZITHROMYCIN INJ 500 MG in SODIUM CHLOR 0.9% 250 ML INJ 250 ML IV SCH (17:02)
[2017-07-01 22:15] LABS: CREATINE KINASE 51 U/L (26-192)
[2017-07-01] MEDS: BUDESONIDE-FORMOTEROL 160/4.5 MCG INHALER INH SCH (22:37)
[2017-07-01] MEDS: guaiFENesin E.R. 600 MG TAB PO SCH (22:38)
[2017-07-01] MEDS: IBUPROFEN 400 MG TAB PO SCH ×2 (22:40→23:17)
[2017-07-02] VITALS (11 sets, daily range): BP systolic 96–139; BP diastolic 50–63; PULSE 39–72; RESP 17–18; TEMP 96–96.4; O2SAT 92–94
[2017-07-02] MEDS: IBUPROFEN 400 MG TAB PO SCH ×2 (05:11→12:43)
[2017-07-02] MEDS: RESP: ALBUTEROL 2.5 MG/IPRATROPIUM 0.5 MG NEB (SCH) NEB ×2 (07:17→15:22)
--- NOTE | 2017-07-02 08:58 | HHI.PR ---
Subjective Remarks Written by Isaiah Barbosa, acting as scribe for Dr. Khan on 07/02/17 at 08: 58. Follow-up visit urinary tract infection, COPD exacerbation, pneumonia, right knee pain. Patient seen and examined today. She is doing well. States she is unable to take care of herself. Denies any worsening shortness of breath or dyspnea. Occasional cough. Denies any fevers, chills. Denies dysuria, hematuria. Denies nausea, vomiting, diarrhea. Appetite has improved today patient is able to eat. Has not moved her bowels. Objective Vitals Vital Signs Date Time Temp Pulse Resp B/P (MAP) Pulse Ox O2 Delivery O2 Flow Rate FiO2 07/02/17 07:21 92 Nasal Cannula 4.00 07/02/17 04:03 39 07/02/17 04:00 96.4 49 18 130/59 (82) 93 07/02/17 01:10 39 07/02/17 00:26 48 07/02/17 00:00 96.0 52 17 123/63 (83) 93 07/01/17 23:20 94 Nasal Cannula 4.00 07/01/17 21:31 54 07/01/17 20:15 96.1 55 18 116/56 (76) 94 07/01/17 20:06 Nasal Cannula 5.00 07/01/17 15:11 18 07/01/17 15:09 46 07/01/17 12:22 98.0 54 18 121/57 (78) 90 07/01/17 09:52 Nasal Cannula 5.00 I/O 07/01/17 07/01/17 07/01/17 07/02/17 07/02/17 07/02/17 07:00 15:00 23:00 07:00 15:00 23:00 Intake Total 1240 ml 240 ml Output Total 501 ml Balance 1240 ml -261 ml Intake Oral 240 ml 240 ml IV Total 1000 ml Output Urine Total 500 ml Stool Total 1 ml # Voids 1 1 Result Diagram: 07/01/17 1512 07/01/17 1512 Imaging Last Impressions Chest X-Ray 06/30/17 0000 Signed Impressions: Service Date/Time: Friday, June 30, 2017 04:10 - CONCLUSION: 1. Subsegmental atelectasis at the lung bases. Franklin Herrera MD CT Angiography 06/30/17 0000 Signed Impressions: Service Date/Time: Friday, June 30, 2017 12:39 - CONCLUSION: No evidence of PE. Bilateral basilar airspace consolidation within the right and left lower lobe as well as the deep in the portions of the lingula and right middle lobe. Amparo Ramos MD Knee X-Ray 06/29/17 0000 Signed Impressions: Service Date/Time: Thursday, June 29, 2017 15:06 - CONCLUSION: 1. Moderate size joint effusion. 2. No acute bony abnormality. Ray Padron MD Objective Remarks GENERAL: This is a well-nourished, well-developed patient, in no apparent distress. SKIN: Warm and dry. HEENT: Normocephalic. Pupils equal round and reactive. Nose without bleeding. Airway patent. NECK: Trachea midline. No JVD. Supple. CARDIOVASCULAR: Regular rate and rhythm without murmurs, gallops, or rubs. RESPIRATORY: Diminished bases. Coarse breath sounds. GASTROINTESTINAL: Abdomen soft, non-tender, nondistended. Bowel Sounds normoactive x4. MUSCULOSKELETAL: Extremities without clubbing, cyanosis, right knee edema, and tenderness. Limited ROM RLE. NEUROLOGICAL: Awake and alert. Oriented to place, person. No focal neuro deficit. Moves all extremities. Normal speech. A/P Problem List: (1) Gait instability ICD Code: R26.81 - Unsteadiness on feet (2) Knee pain ICD Code: M25.569 - Pain in unspecified knee (3) Renal insufficiency ICD Code: N28.9 - Disorder of kidney and ureter, unspecified (4) UTI (urinary tract infection) ICD Code: N39.0 - Urinary tract infection, site not specified Status: Acute (5) HTN (hypertension) ICD Code: I10 - Essential (primary) hypertension Assessment and Plan 71-year-old female with a PMH of HTN, COPD, h/o CVA and Tobacco Abuse who was brought to the ER by EMS secondary to complaints of severe right knee pain. Reports increasing difficulty w/ ambulation due to pain. Per EMS, pt living in very poor conditions, unkempt. Patient was to be DC'd to [facility] from ER, however unable to make arrangements for placement at this time, therefore pt to be admitted for gait instability as unsafe discharge home. Gait Instability: c/o progressive gait instability secondary to knee pain, unable to ambulate without assistance. - Patient states that she has been nonambulatory for a while and uses motorized wheelchair at home. - Lives alone. Case Management assisting with placement. - PT for eval/tx, recommends SNF rehab or [facility] w/[facility]. Right Knee Pain: Right. Severe. No injury/trauma. - Knee X-ray w/ moderate size effusion, images reviewed - PT for eval/tx. Analgesics as needed. - Ice pack. Acute Respiratory Failure with Hypoxia: O2 sat dropped into low 80s on 06/30. - CT-PA images reviewed, negative for PE, showed bilateral basilar airspace consolidation with the right and left lower lobes, and lingula and RML. - Consult pulmonology. Appreciate input - Smoking cessation. Acapella. IS. - Duonebs Community Acquired Pneumonia: Seen on Chest CT as above. Currently on IV Rocephin and IV Azithro. DC Rocephin switch to PO Azithromycin - Check sputum culture. Urinary legionella/pneumococcal antigens. - Acapella and incentive spirometry. Mucinex bid. Duo nebs. Acute COPD Exacerbation: O2 sat dropped to the 80s as above, currently requiring O2 NC. Wean off and titrate flow, keep O2 sat >90% - Continue on scheduled duo nebs q8h and steroids with prednisone 20mg bid x3days. - Will likely need home O2 walk test prior to discharge. MIREYA: Acute Renal Insufficiency. Creatinine 1.05, previously 0.63 on 02/07/15. - U/a positive for UTI, Given IVF for hydration, s/p 5L. - Repeat labs show improvement, Cr 0.79. - Resolved. UTI-Klebsiella pneumonia - S/p IVF for hydration - Currently on Rocephin, switch to by mouth Ceftin HTN: BP 150-160's, likely compounded by pain complaints, optimize pain control. - Monitor BP, improved. Tobacco Abuse: patient continues to smoke 1 to 1.5 PPD. - Counseled to quit but patient has no desire at this time. - Continue nicotine patch. Candidal Intertrigo: under bilateral breasts, worse on the left. Currently on nystatin powder bid [id number]. DVT Prophylaxis: Heparin sq Discussed with patient, nursing This note was transcribed by juancarlos Barbosa. I, Dr. Navarro Khan personally performed the history, physical exam, and medical decision making; and confirmed the accuracy of the information in the transcribed note. Authenticated by Dr. Navarro Khan on 07/02/17 at 08:58. Discharge Planning Plan to DC for SNF when arranged. Case management involved. Problem Qualifiers (1) UTI (urinary tract infection): Qualified Codes: N39.0 - Urinary tract infection, site not specified Isaiah Zambrano Jul 02, 2017 08:58 Navarro Khan MD Jul 02, 2017 08:58
[2017-07-02] MEDS: NYSTATIN 100,000 U/GM PWD 15 GM BTL TOPICAL SCH (09:00)
[2017-07-02] MEDS: REMOVE OLD PATCH T-DERMAL SCH (09:00)
[2017-07-02] MEDS: NICOTINE 21 MG/24 HR PATCH T-DERMAL SCH (09:45)
[2017-07-02] MEDS: HEPARIN SODIUM - SQ 10,000 UNITS/ML VIAL SQ SCH (09:45)
[2017-07-02] MEDS: guaiFENesin E.R. 600 MG TAB PO SCH (09:45)
[2017-07-02] MEDS: predniSONE 20 MG TAB PO SCH (09:45)
[2017-07-02] MEDS: DOCUSATE SODIUM 50 MG/SENNA 8.6 MG TAB PO SCH (09:45)
[2017-07-02] MEDS: BUDESONIDE-FORMOTEROL 160/4.5 MCG INHALER INH SCH (09:46)
[2017-07-02] MEDS: SODIUM CHLORIDE 0.9% FLUSH 10 ML FLUSH IV FLUSH SCH (09:46)
[2017-07-02] MEDS ORDERED: AZITHROMYCIN 250 MG TAB PO SCH (11:45)
--- NOTE | 2017-07-02 14:05 | HHI.DS ---
Discharge Summary Admission Date Jul 01, 2017 at 16:04 Discharge Date: Jul 02, 2017 Admitting Diagnosis right knee joint effusion, UTI, unable to ambulate. (1) Gait instability ICD Code: R26.81 - Unsteadiness on feet (2) Knee pain ICD Code: M25.569 - Pain in unspecified knee (3) Renal insufficiency ICD Code: N28.9 - Disorder of kidney and ureter, unspecified (4) UTI (urinary tract infection) ICD Code: N39.0 - Urinary tract infection, site not specified Status: Acute (5) HTN (hypertension) ICD Code: I10 - Essential (primary) hypertension Procedures none Brief History - From Admission This is a 71-year-old female with a PMH of HTN, COPD, h/o CVA and Tobacco Abuse who was brought to the ER by EMS secondary to complaints of severe right knee pain. Reports increasing difficulty w/ ambulation due to pain. Denies injury or trauma. Per EMS, pt living in very poor conditions, unkempt. On arrival, BP 164/68, HR 85, O2 sat 96% on RA, Afebrile. CBC unremarkable. Creatinine 1.05, previously 0.63 on 02/07/15. INR 1.1. UA positive for UTI. Knee X-ray with moderate size joint effusion. Patient was to be DC'd to [facility] from ER, however unable to make arrangements for placement at this time, therefore pt to be admitted for gait instability as unsafe discharge home. CBC/BMP: 07/01/17 1512 07/01/17 1512 Significant Findings Laboratory Tests Test 06/29/17 14:30 06/30/17 02:30 06/30/17 07:39 07/01/17 15:12 Urine Turbidity HAZY (CLEAR) Urine Occult Blood SMALL (NEG) Urine Nitrite POS (NEG) Urine Leukocyte Esterase MOD (NEG) Urine WBC 9 /hpf (0-5) Urine Bacteria MANY /hpf (NONE) Troponin I LESS THAN 0.02 NG/ML LESS THAN 0.02 NG/ML LESS THAN 0.02 NG/ML Red Blood Count 3.67 MIL/MM3 (4.00-5.30) 3.46 MIL/MM3 (4.00-5.30) Hemoglobin 11.0 GM/DL (11.6-15.3) 10.5 GM/DL (11.6-15.3) Hematocrit 32.4 % (35.0-46.0) 30.5 % (35.0-46.0) Platelet Count 139 TH/MM3 (150-450) Neutrophils % (Manual) 75 % (16-70) Monocytes % 11 % (0-8) Platelet Estimate LOW (NORMAL) Ovalocytes 1+ (NORMAL) Albumin 2.9 GM/DL (3.4-5.0) Calcium Level 8.2 MG/DL (8.5-10.1) 8.3 MG/DL (8.5-10.1) Aspartate Amino Transf (AST/SGOT) 11 U/L (15-37) Alanine Aminotransferase (ALT/SGPT) 8 U/L (10-53) Chloride Level 109 MEQ/L (98-107) 108 MEQ/L (98-107) Estimat Glomerular Filtration Rate 64 ML/MIN (>89) 72 ML/MIN (>89) Neutrophils (%) (Auto) 87.7 % (16.0-70.0) Lymphocytes (%) (Auto) 7.7 % (9.0-44.0) Lymphocytes # (Auto) 0.5 TH/MM3 (1.0-4.8) Random Glucose 123 MG/DL (74-106) Imaging Last Impressions Chest X-Ray 06/30/17 0000 Signed Impressions: Service Date/Time: Friday, June 30, 2017 04:10 - CONCLUSION: 1. Subsegmental atelectasis at the lung bases. Franklin Herrera MD CT Angiography 06/30/17 0000 Signed Impressions: Service Date/Time: Friday, June 30, 2017 12:39 - CONCLUSION: No evidence of PE. Bilateral basilar airspace consolidation within the right and left lower lobe as well as the deep in the portions of the lingula and right middle lobe. Amparo Ramos MD Knee X-Ray 06/29/17 0000 Signed Impressions: Service Date/Time: Thursday, June 29, 2017 15:06 - CONCLUSION: 1. Moderate size joint effusion. 2. No acute bony abnormality. Ray Padron MD PE at Discharge GENERAL: This is a well-nourished, well-developed patient, in no apparent distress. SKIN: Warm and dry. HEENT: Normocephalic. Pupils equal round and reactive. Nose without bleeding. Airway patent. NECK: Trachea midline. No JVD. Supple. CARDIOVASCULAR: Regular rate and rhythm without murmurs, gallops, or rubs. RESPIRATORY: Diminished bases. Coarse breath sounds. GASTROINTESTINAL: Abdomen soft, non-tender, nondistended. Bowel Sounds normoactive x4. MUSCULOSKELETAL: Extremities without clubbing, cyanosis, right knee edema, and tenderness. Limited ROM RLE. NEUROLOGICAL: Awake and alert. Oriented to place, person. No focal neuro deficit. Moves all extremities. Normal speech. Hospital Course Gait Instability: c/o progressive gait instability secondary to knee pain, unable to ambulate without assistance. - Patient states that she has been nonambulatory for a while and uses motorized wheelchair at home. - Lives alone. Case Management assisting with placement. - PT for eval/tx, recommends SNF rehab or [facility] w/[facility]. Right Knee Pain: Right. Severe. No injury/trauma. - Knee X-ray w/ moderate size effusion, images reviewed - PT for eval/tx. Analgesics as needed. - Ice pack. Acute Respiratory Failure with Hypoxia: O2 sat dropped into low 80s on 06/30. - CT-PA images reviewed, negative for PE, showed bilateral basilar airspace consolidation with the right and left lower lobes, and lingula and RML. - Smoking cessation. Acapella. IS. - Duonebs Community Acquired Pneumonia: Seen on Chest CT as above. She was treated with IV Rocephin and IV Azithro. - Urinary legionella/pneumococcal antigens. - Acapella and incentive spirometry. Mucinex bid. Duo nebs. Acute COPD Exacerbation: O2 sat dropped to the 80s as above, currently requiring O2 NC. Wean off and titrate flow, keep O2 sat >90% - Continue on scheduled duo nebs q8h and steroids with prednisone 20mg bid x3days. MIREYA: Acute Renal Insufficiency. Creatinine 1.05, previously 0.63 on 02/07/15. - U/a positive for UTI, Given IVF for hydration, s/p 5L. - Repeat labs show improvement, Cr 0.79. - Resolved. UTI-Klebsiella pneumonia - S/p IVF for hydration -She was initially treated with Rocephin and switch to Ceftin on discharge HTN: BP 150-160's, likely compounded by pain complaints, optimize pain control. - Monitor BP, improved. Tobacco Abuse: patient continues to smoke 1 to 1.5 PPD. - Counseled to quit but patient has no desire at this time. - Continue nicotine patch. Candidal Intertrigo: under bilateral breasts, worse on the left. She was treated with nystatin powder bid [id number]. DVT Prophylaxis: Heparin sq Pt Condition on Discharge: Stable Discharge Disposition: Discharge to SNF Discharge Time: > 30 minutes Discharge Instructions DIET: Follow Instructions for: Heart Healthy Diet Activities you can perform: Regular-No Restrictions Navarro Khan MD Jul 02, 2017 14:05
[2017-07-02] MEDS ORDERED: HYDR-3516 PO (14:11)
[2017-07-02] MEDS ORDERED: IPRA17I INH (14:11)
[2017-07-02] MEDS ORDERED: NYST10007 TOPICAL (14:11)
[2017-07-02] MEDS ORDERED: LACTCHW3 CHEW (14:11)
[2017-07-02] MEDS ORDERED: VENTAER INH (14:11)
[2017-07-02] MEDS ORDERED: CEFU1TAB20 PO (14:11)
[2017-07-02] MEDS ORDERED: guaiFENesin ER PO (14:11)
[2017-07-02] MEDS ORDERED: SYMB160A INH (14:11)
[2017-07-02] MEDS ORDERED: PRED20 PO (14:11)
[2017-07-02] MEDS ORDERED: AZIT250T3 PO (14:11)
[2017-07-02] MEDS ORDERED: OXYGEN NAS.CANULA (14:13)
--- NOTE | 2017-07-02 16:49 | ECHRPT ---
Indication: Chest Pains CONCLUSIONS The left ventricular systolic function is hyperdynamic with an estimated ejection fraction in the ra nge of 65- 70%. Normal left ventricular size. Wall thickness is measured at the upper limits of normal. No regional wall motion abnormalities are present. Mitral annular calcification is present. Diffuse calcification of the aortic valve. Moderate aortic valve regurgitation. There is trace tricuspid valve regurgitation. The estimated pulmonary arterial pressure is 25.5 mmHg. Trivial pulmonary valve regurgitation. BP: 130 / 59 HR: 82 Rhythm: Sinus MEASUREMENTS (Male / Female) Normal Values Technical Quality:Fair 2D ECHO LV Diastolic Diameter PLAX 4.4 cm 4.2 - 5.9 / 3.9 - 5.3 cm LV Systolic Diameter PLAX 2.9 cm IVS Diastolic Thickness 1.2 cm 0.6 - 1.0 / 0.6 - 0.9 cm LVPW Diastolic Thickness 1.2 cm 0.6 - 1.0 / 0.6 - 0.9 cm LV Relative Wall Thickness 0.6 RV Internal Dim ED PLAX 2.1 cm LVOT Diameter 2.0 cm LA Systolic Diameter LX 3.8 cm 3.0 - 4.0 / 2.7 - 3.8 cm M-MODE Aortic Root Diameter MM 3.2 cm AV Cusp Separation MM 1.9 cm DOPPLER AV Peak Velocity 247.0 cm/s AV Peak Gradient 24.4 mmHg AV Mean Gradient 11.0 mmHg AV Velocity Time Integral 55.7 cm AI Peak Velocity 470.0 cm/s AI Peak Gradient 88.4 mmHg AI Pressure Half Time 419.0 ms LVOT Peak Velocity 147.0 cm/s LVOT Peak Gradient 8.6 mmHg LVOT Velocity Time Integral 30.4 cm LVOT Cardiac Index 5052.9 cm/minm AV Area Cont Eq vti 1.7 cm AV Area Cont Eq pk 1.9 cm MV Peak Velocity 134.0 cm/s MV Peak Gradient 7.2 mmHg MV Mean Velocity 72.8 cm/s MV Mean Gradient 3.0 mmHg MV Area PHT 2.1 cm Mitral E Point Velocity 79.5 cm/s Mitral A Point Velocity 112.0 cm/s Mitral E to A Ratio 0.7 TR Peak Velocity 197.0 cm/s TR Peak Gradient 15.5 mmHg Right Atrial Pressure 10.0 mmHg Pulmonary Artery Systolic Pressu 25.5 mmHg Right Ventricular Systolic Press 25.5 mmHg PV Peak Velocity 145.0 cm/s PV Peak Gradient 8.4 mmHg FINDINGS LEFT VENTRICLE The left ventricular systolic function is hyperdynamic with an estimated ejection fraction in the ra nge of 65- 70%. There is a moderate increase in the left ventricular intracavitary gradient. Normal left ventricular size. Wall thickness is measured at the upper limits of normal. No regional wall motion abnormalities are present. RIGHT VENTRICLE Normal right ventricular size and systolic function. LEFT ATRIUM The left atrial size is normal. RIGHT ATRIUM The right atrial size is normal. ATRIAL SEPTUM Normal atrial septal thickness without atrial level shunting by limited color doppler interrogation. AORTA The aortic root and proximal ascending aorta are normal in size on limited imaging. MITRAL VALVE Mitral annular calcification is present. AORTIC VALVE Diffuse calcification of the aortic valve. Moderate aortic valve regurgitation. TRICUSPID VALVE There is trace tricuspid valve regurgitation. The estimated pulmonary arterial pressure is 25.5 mmHg. PULMONARY VALVE Trivial pulmonary valve regurgitation. VESSELS The inferior vena cava is normal in size. PERICARDIUM No pericardial effusion. Ryan Brooks MD (Electronically Signed) Final Date:02 July 2017 16:49
[2017-07-02] MEDS ORDERED: CEFUROXIME AXETIL 500 MG TAB PO SCH (21:00)
--- NOTE | 2017-07-03 05:45 | MB ---
cc: ROWAN FLYNN DATE OF CONSULTATION 07/02/2017 REASON FOR CONSULTATION COPD. HISTORY OF PRESENT ILLNESS This is 71-year-old lady with a history of COPD, prior history for CVA and hypertension and gait instability, was brought in for a right knee joint effusion and difficulty in walking. The patient was complaining of severe knee pain. She has been seen by Orthopedics following admission. She was apparently also was complaining of shortness of breath and cough. The patient has a longstanding history of smoking. She also has been neglecting her health and upon arrival was quite unkempt and following admission was treated for the knee joint effusion and was scheduled to be discharged to an [facility]. She is on oxygen since she was somewhat short of breath and also was started on nebulized DuoNeb solution. There is no history of fevers or chills, night sweats or hemoptysis. PAST HISTORY 1. COPD. 2. History of CVA. 3. History of hypertension. 4. Previous history of appendectomy. 5. Hysterectomy. 6. Bilateral hip joint replacement. 7. Lumbar disk repair. 8. Left femoral-popliteal bypass. 9. Cervical spine repair. HABITS The patient smokes half to one-pack per day and has done so for over 40 years. No significant alcohol. ALLERGIES SULFA DRUGS. FAMILY HISTORY Noncontributory. REVIEW OF SYSTEMS The patient has lost weight. She has cough, wheezing, chest congestion, epigastric distress. No nausea or vomiting. She has no leg swelling but has knee joint pain and hip pains. PHYSICAL EXAMINATION GENERAL: This thinly built elderly lady who is pale and mildly dyspneic. Blood pressure 130 x 60, pulse 70, respirations 16, temperature 97. HEENT: Head normocephalic. Pupils are reactive and equal. Tongue was moist. Throat is clear. NECK: Supple without lymphadenopathy or thyromegaly. CHEST: Distant breath sounds with expiratory wheezes bilaterally. Occasional crackles right chest. HEART SOUNDS: Regular S1 and S2. No murmur. ABDOMEN: Soft, scaphoid, without masses. No organomegaly or tenderness. EXTREMITIES: Decreased range of movement of the knees, particularly the right side. No calf tenderness. Reflexes are 1+ with no gross motor deficits. SKIN: No lesions observed. IMPRESSION 1. COPD with chronic bronchitis and emphysema. 2. Right knee pain with knee joint effusion. 3. Urinary tract infection. 4. Hypertension. 5. Nicotine dependency. PLAN 1. The patient will be placed on DuoNeb solution with a nebulizer q.i.d. 2. Symbicort 160/4.5 two puffs twice daily. 3. O2 2 liters p.r.n. 4. Incentive spirometry q.i.d. 5. Chest x-ray to be done and a bedside pulmonary function study when she is stable. Thank you Dr. Khan for this consultation. Rowan Flynn MD JJASON/OMID /7:00 PM /5:35 AM
== END 2017-07-02 17:51 | DRG 564 ==
LOC: NEPE 12:58 → NEDA 19:06 → NEPGCP 21:20 → OBSVTOIN 07-01 16:04 → HOCA 07-01 20:01
PROVIDERS: ADMIT Hospitalist; ATTEND Hospitalist
DX: M25.461 Effusion, right knee (principal); J18.9 Pneumonia, unspecified organism; J96.01 Acute respiratory failure with hypoxia; N17.9 Acute kidney failure, unspecified; J44.0 Chronic obstructive pulmonary disease with (acute) lower respiratory infection; F17.210 Nicotine dependence, cigarettes, uncomplicated; I10 Essential (primary) hypertension; B37.2 Candidiasis of skin and nail; J44.1 Chronic obstructive pulmonary disease with (acute) exacerbation; N39.0 Urinary tract infection, site not specified; B96.1 Klebsiella pneumoniae [K. pneumoniae] as the cause of diseases classified elsewhere; R26.81 Unsteadiness on feet; Z96.643 Presence of artificial hip joint, bilateral; M19.90 Unspecified osteoarthritis, unspecified site; L30.4 Erythema intertrigo; Z86.73 Personal history of transient ischemic attack (TIA), and cerebral infarction without residual deficits; Z95.820 Peripheral vascular angioplasty status with implants and grafts
CPT/HCPCS: 71010; 71275; 73564; 76937; 80048; 80053; 81001; 82550; 84484; 85007; 85025; 85027; 85610; 85730; 87040; 87077; 87086; 87186; 87449; 93005; 93306; 94150; 94640; 94664; 94667; 94668; 96361; 96365; 96366; 96372; 96375; G0378; G8987-GP; G8988-GP; J0456; J0696; J1644; J1885; J2270; J2405; J7030; J7050; J7512; Q9967